=== PATIENT | male | born 1990 | race African-American/Black ===

== ENCOUNTER 2018-08-02 11:55 | Emergency (ER) | payer OTHER ==
[2018-08-02] MEDS ORDERED: ACETAMINOPHEN TAB 500 MG TAB PO STA (12:42)
[2018-08-02] MEDS ORDERED: SODIUM CHLORIDE 0.9% 1,000 ML IV ONE (12:43)
[2018-08-02] MEDS ORDERED: KETOROLAC 30 MG/ML 1 ML VIAL IVP STA (12:43)
[2018-08-02] MEDS ORDERED: methylPREDNISolone SOD SUCCI 125 MG/2 ML VIAL IV STA (12:43)
[2018-08-02] MEDS ORDERED: AMPICILLIN-SULBACTAM 3 GM in SODIUM CHLORIDE 0.9% 100 ML IVPB STA (12:44)
--- NOTE | 2018-08-02 12:57 | ED ---
ENT HPI <Paulo Guerra - Last Filed: 08/02/18 14:29> - General Source: patient, RN notes reviewed, old records reviewed Mode of arrival: ambulatory Limitations: no limitations <Dona Patel - Last Filed: 08/02/18 14:42> - General Chief complaint: ENT Stated complaint: sore throat, bumps on lips - History of Present Illness Initial comments: Patient is a 27-year-old male presents emergency department today complaints of sore throat and muffled voice. He reports he isn't having sore throat for the past 2 days. No history of sick contacts the Patient is aware of. Patient has had fevers and chills. [facility] for concerns for peritonsillar abscess. Patient states he's had no recent Motrin or Tylenol. Patient also complains of blisters over his lips. (Dona Patel) - Related Data Previous Rx's Medication Instructions Recorded Amoxic-Pot Clav 875-125Mg 1 tab PO Q12HR #20 tablet 08/02/18 [Augmentin 875-125] predniSONE 50 mg PO DAILY #5 tablet 08/02/18 Allergies Allergy/AdvReac Type Severity Reaction Status Date / Time No Known Allergies Allergy Verified 08/02/18 12:43 Review of Systems ROS Other: All systems not noted in ROS Statement are negative. <Paulo Guerra - Last Filed: 08/02/18 14:29> ROS Other: All systems not noted in ROS Statement are negative. <Dona Patel - Last Filed: 08/02/18 14:42> ROS Statement: Those systems with pertinent positive or pertinent negative responses have been documented in the HPI. Past Medical History Past Medical History: No Reported History History of Any Multi-Drug Resistant Organisms: None Reported Additional Past Surgical History / Comment(s): thumb surgery Past Psychological History: No Psychological Hx Reported Smoking Status: Never smoker Past Alcohol Use History: None Reported Past Drug Use History: None Reported <Dona Patel - Last Filed: 08/02/18 14:42> General Exam Limitations: no limitations General appearance: alert, in no apparent distress Eye exam: Present: normal appearance, PERRL, EOMI. Absent: scleral icterus, conjunctival injection, periorbital swelling ENT exam: Present: normal exam, mucous membranes moist, other (Patient has hot potato voice.). Absent: normal oropharynx (Erythematous oropharynx. Left-sided uvula deviation with a right peritonsillar swelling.) Neck exam: Present: normal inspection, lymphadenopathy (right adenopathy). Absent: tenderness, meningismus Respiratory exam: Present: normal lung sounds bilaterally. Absent: respiratory distress, wheezes, rales, rhonchi, stridor Cardiovascular Exam: Present: regular rate, normal rhythm, normal heart sounds. Absent: systolic murmur, diastolic murmur, rubs, gallop, clicks <Dona Patel - Last Filed: 08/02/18 14:42> - General Exam Comments Initial Comments: This is a 27-year-old male. Alert and oriented. No significant distress. (Dona Patel) Course Vital Signs 08/02/18 08/02/18 12:10 13:53 Temperature 100.4 F H Pulse Rate 109 H Respiratory 18 20 Rate Blood Pressure 129/75 O2 Sat by Pulse 97 Oximetry Medical Decision Making - Lab Data Result diagrams: 08/02/18 12:25 08/02/18 12:25 <Paulo Guerra - Last Filed: 08/02/18 14:29> - Lab Data Result diagrams: 08/02/18 12:25 08/02/18 12:25 - Radiology Data Radiology results: report reviewed <Dona Patel - Last Filed: 08/02/18 14:42> - Medical Decision Making IJavier, personally saw and examined the patient. I have reviewed and agree with the PA findings, including all diagnostic interpretations and treatment plans as written unless otherwise stated. I was present for the michaud po rtions of any procedures performed and the inclusive time noted for any critical care statement. I did not see obvious abscess on the CAT scan and an physical exam there was some slight swelling on the right side but it was not yet significant enough to attempt aspiration (Paulo Guerra) - Lab Data Lab Results 08/02/18 08/02/18 08/02/18 Range/Units 12:25 12:25 12:25 WBC 24.3 H (3.8-10.6) k/uL RBC 5.29 (4.30-5.90) m/uL Hgb 14.7 (13.0-17.5) gm/dL Hct 46.0 (39.0-53.0) % MCV 86.9 (80.0-100.0) fL MCH 27.8 (25.0-35.0) pg MCHC 31.9 (31.0-37.0) g/dL RDW 12.3 (11.5-15.5) % Plt Count 245 (150-450) k/uL Neutrophils % 84 % Lymphocytes % 9 % Monocytes % 5 % Eosinophils % 1 % Basophils % 0 % Neutrophils # 20.5 H (1.3-7.7) k/uL Lymphocytes # 2.1 (1.0-4.8) k/uL Monocytes # 1.1 H (0-1.0) k/uL Eosinophils # 0.2 (0-0.7) k/uL Basophils # 0.1 (0-0.2) k/uL PT 10.5 (9.0-12.0) sec INR 1.0 (<1.2) Sodium 140 (137-145) mmol/L Potassium 4.4 (3.5-5.1) mmol/L Chloride 102 (98-107) mmol/L Carbon Dioxide 23 (22-30) mmol/L Anion Gap 15 mmol/L BUN 10 (9-20) mg/dL Creatinine 1.33 H (0.66-1.25) mg/dL Est GFR (CKD-EPI)AfAm 83 (>60 ml/min/1.73 sqM) Est GFR (CKD-EPI)NonAf 72 (>60 ml/min/1.73 sqM) Glucose 116 H (74-99) mg/dL Plasma Lactic Acid Ez (0.7-2.0) mmol/L Calcium 10.2 (8.4-10.2) mg/dL Group A Strep Rapid (Negative) 08/02/18 08/02/18 Range/Units 12:25 12:25 WBC (3.8-10.6) k/uL RBC (4.30-5.90) m/uL Hgb (13.0-17.5) gm/dL Hct (39.0-53.0) % MCV (80.0-100.0) fL MCH (25.0-35.0) pg MCHC (31.0-37.0) g/dL RDW (11.5-15.5) % Plt Count (150-450) k/uL Neutrophils % % Lymphocytes % % Monocytes % % Eosinophils % % Basophils % % Neutrophils # (1.3-7.7) k/uL Lymphocytes # (1.0-4.8) k/uL Monocytes # (0-1.0) k/uL Eosinophils # (0-0.7) k/uL Basophils # (0-0.2) k/uL PT (9.0-12.0) sec INR (<1.2) Sodium (137-145) mmol/L Potassium (3.5-5.1) mmol/L Chloride (98-107) mmol/L Carbon Dioxide (22-30) mmol/L Anion Gap mmol/L BUN (9-20) mg/dL Creatinine (0.66-1.25) mg/dL Est GFR (CKD-EPI)AfAm (>60 ml/min/1.73 sqM) Est GFR (CKD-EPI)NonAf (>60 ml/min/1.73 sqM) Glucose (74-99) mg/dL Plasma Lactic Acid Ez 0.9 (0.7-2.0) mmol/L Calcium (8.4-10.2) mg/dL Group A Strep Rapid Positive A (Negative) - Radiology Data Swelling of the wall diameter measuring greater on the right than the left. Mild swelling, oropharynx on the right. Adenopathy. (Dona Patel) Disposition <Paulo Guerra - Last Filed: 08/02/18 14:29> Is patient prescribed a controlled substance at d/c from ED?: No Time of Disposition: 14:39 <Dona Patel - Last Filed: 08/02/18 14:42> Clinical Impression: Strep pharyngitis Disposition: HOME SELF-CARE Condition: Good Instructions (If sedation given, give patient instructions): Pharyngitis (ED) Additional Instructions: Take the antibiotic as prescribed. Complete steroid prescription as well. Recommended follow-up with ENT specialist. If the swelling and pain continues to worsen or feeling as a severe difficulty breathing please return to ER for reevaluation. Prescriptions: Amoxic-Pot Clav 875-125Mg [Augmentin 875-125] 1 tab PO Q12HR #20 tablet predniSONE 50 mg PO DAILY #5 tablet Referrals: None,Stated [Primary Care Provider] - 1-2 days Adolfo Bolaños MD [STAFF PHYSICIAN] - 1-2 days
[2018-08-02 13:05] LABS: Basophils # (A) 0.1 k/uL (0-0.2); Basophils % (A) 0 %; Eosinophils # (A) 0.2 k/uL (0-0.7); Eosinophils % (A) 1 %; HGB 14.7 gm/dL (13.0-17.5); Lymphocytes # (A) 2.1 k/uL (1.0-4.8); Lymphocytes % (A) 9 %; MCH 27.8 pg (25.0-35.0); MCHC 31.9 g/dL (31.0-37.0); MCV 86.9 fL (80.0-100.0); Mean Platelet Volume 7.4; Monocytes # (A) 1.1 k/uL (0-1.0); Monocytes % (A) 5 %; Neutrophils # (A) 20.5 k/uL (1.3-7.7); Neutrophils % (A) 84 %; Platelet Count 245 k/uL (150-450); RBC 5.29 m/uL (4.30-5.90); RDW 12.3 % (11.5-15.5); WBC 24.3 k/uL (3.8-10.6)
[2018-08-02 13:16] LABS: Calcium 10.2 mg/dL (8.4-10.2); Potassium 4.4 mmol/L (3.5-5.1)
[2018-08-02 13:21] LABS: Prothrombin Time 10.5 sec (9.0-12.0)
[2018-08-02] MEDS ORDERED: BENZOCAINE SPRAY 1 CAN MUCOUS MEM STA (13:28)
--- NOTE | 2018-08-02 13:56 | CT ---
EXAMINATION TYPE: CT soft tissue neck w con DATE OF EXAM: 08/02/2018 1:45 PM COMPARISON: None. HISTORY: Sore throat CT DLP: 304.9 mGycm Automated exposure control for dose reduction was used. CONTRAST: CT scan of the neck is performed following with IV Contrast, patient injected with 100 mL of Isovue 3 00. Axial images are obtained, coronal and sagittal reformatted images are reviewed. Visualized portions of the lungs are clear. Vertebral body height and alignment are maintained. Atlantoaxial relationships are maintained. There is no significant degenerative change. There is mild asymmetry of the oropharynx with prominence of the right-sided soft tissues. There is s ome swelling of Waldeyer's ring bilaterally. The epiglottis is normal in its appearance. There is eleni ateral adenopathy. The largest lymph node is on the right in the deep cervical chain and measures 1.8 cm in smallest transverse diameter. There also some submental nodes and some posterior cervical lymp h nodes. IMPRESSION: 1. SWELLING OF WALL DIAMETER MEASURING GREATER ON THE LEFT RIGHT AND THE LEFT. 2. MILD SWELLING IN THE OROPHARYNX ON THE RIGHT. 3. ADENOPATHY.
[2018-08-02 14:58] VITALS: BP 139/64; PULSE 87; RESP 18; TEMP 99.1
== END 2018-08-02 14:50 | disposition home or self-care (01) ==
LOC: EC 11:55
DX: J02.0 Streptococcal pharyngitis (principal); B95.0 Streptococcus, group A, as the cause of diseases classified elsewhere
CPT/HCPCS: 36415; 80048; 83605; 85025; 85610; 87040; 87430; 70491; 99284; 96365; 96375 ×2; J2930; J1885; J0295; Q9967